=== PATIENT | male | born 1985 | race Caucasian/White ===

== ENCOUNTER → 2025-03-11 16:14 | Outpatient (REF) | payer OTHER, SELFPAY | LOC: RAD 16:14 | PROVIDERS: ATTENDING PHYSICIAN Physician Assistant | DX: R10.32 Left lower quadrant pain (principal) | CPT/HCPCS: 74177; Q9967 ==

== ENCOUNTER 2025-03-11 17:15 | Emergency (ER) | payer OTHER, SELFPAY ==
[2025-03-11 17:23] VITALS: BMI 23.5
--- NOTE | 2025-03-11 17:24 | ED.GENMED ---
History of Present Illness
General
Chief Complaint: Allergic Reaction
Source: patient
Exam Limitations: none
Time Seen by Provider: 03/11/25 17:23
Nursing documentation reviewed up to this point in time: agreed with
History of Present Illness
History of Present Illness:
39-year-old male with no reported chronic medical issues presents to the ER from outpatient CT scanner due to allergic reaction. Patient was receiving outpatient CT and received IV contrast. He had removed his IV and he was getting ready to go
home when he started to notice puffiness of his right eye and pruritic rash and returned back to outpatient radiology area at which point a rapid response was called and he was brought to the emergency room. Patient reports puffiness in the eye and
mild pruritus with rash. He denies feeling short of breath. He denies feeling any swelling in his tongue or throat. He denies any abdominal pain or nausea. He denies having had similar reactions in the past, denies any known allergies.
Past History
Past History
ED Past Medical History: Other ( Varicose veins in his legs, bipolar illness)
ED Past Surgical History: Other (varicose veins)
Social History
Tobacco: Vaping (He vapes nicotine)
Alcohol: None
Drug: None
Personal:
Family History
Family History: Other (Gran father with CHF)
Review of Systems
Review of Systems
All Other Systems: ROS reviewed and negative except as documented in HPI and ROS
Constitutional: Denies fever
Respiratory: Denies cough or trouble breathing
Cardiac: Denies chest pain
ABD/GI: Denies abdominal pain, nausea or vomiting
: Denies flank pain
Musculoskeletal: Denies neck pain or back pain
Skin: Reports itching and rash
Neurological: Denies headache
Phy Exam
Physical Exam
Physical Exam:
General: Awake, alert, no acute distress
Head: Normocephalic, atraumatic
Eyes: Conjunctiva normal, EOMI; mild right periorbital edema
Throat: Airway intact, handling secretions, no tongue or lip swelling noted
Neck: Trachea midline, supple without meningismus
Lungs: Clear to auscultation bilaterally, no wheezing, rales, rhonchi
Heart: Regular rate and rhythm, no murmurs, gallops, or rubs
Abd: Soft, non distended, nontender
Neuro: Grossly intact
Skin: Patient has scattered hives and erythema on the face, back, chest and neck as well as on extremities
Extremities: Warm and well-perfused
Scores
Heart Failure Risk
Heart Failure Risk Score: Not Applicable
Heart Score for Chest Pain Patients
STEMI patient?: Not applicable
Withdrawal Assessment of Alcohol
Withdrawal Assessment Completed?: Not applicable
Course
Orders/Labs/Results
Orders:
Orders
03/11/25 17:18
EPINEPHrine PF [Adrenalin] 1 mg .ROUTE .STK-MED ONE
Famotidine [Pepcid] 20 mg .ROUTE .STK-MED ONE
Prednisone [Deltasone] 50 mg .ROUTE .STK-MED ONE
03/11/25 17:19
Diphenhydramine [Benadryl] 50 mg .ROUTE .STK-MED ONE
03/11/25 17:24
Diphenhydramine [Benadryl] 50 mg PO NOW STA
EPINEPHrine PF [Adrenalin] 0.3 mg IM NOW STA
Famotidine [Pepcid] 20 mg PO NOW STA
Prednisone [Deltasone] 50 mg PO NOW STA
Vital Signs
Initial and Last Documented VS:
Initial Vital Signs
BP Pulse Ox
154/114 97
03/11/25 17:26 03/11/25 17:26
Last Documented Vital Signs
Temp Pulse Resp BP Pulse Ox
37.1 C 85 19 142/95 96
03/11/25 17:43 03/11/25 20:00 03/11/25 19:49 03/11/25 20:00 03/11/25 20:00
MDM/Problems Addressed
Differential Diagnosis Includes:
Allergic reaction
MDM/Problems Addressed:
Patient presents with allergic reaction after receiving IV dye for outpatient CT scan. He has pruritus and hives with some periorbital edema but no swelling of the lips or tongue, no breathing troubles, no GI symptoms. Will plan to treat with
epinephrine, steroids, antihistamines. Will monitor very closely reassess after the above.
Reassessment after medication patient reports subjective improvement. Objectively the edema in the right periorbital region has completely resolved. Hives/erythema on the neck/back/chest improving. Continue to monitor here.
Patient completely asymptomatic on reassessment. Continue to monitor--will plan for 4-hour total observation from time of injection which was at 4:45 PM.
Patient remains completely asymptomatic. He did have some hypertension after epinephrine but this is normalized, rest of vitals have been stable. He is requesting discharge�at this point he is roughly 4 hours from time of exposure has not had
symptoms since receiving meds here. Will discharge on short course of steroids with EpiPen in place. Spoke to him in detail about return precautions and follow-up plan and explained that he can never have IV dye without pain premedicated. He
indicated understanding. All questions answered.
*Pulse Oximetry
Patient hypoxic: no (99%)
*Critical Care Note
Total Time (30-74mins, 75-104mins- exclusive of procedures): Not Applicable
Data Reviewed
Source: patient
ED Attending Note
-
Portions of this chart may have been created with voice recognition software.� Occasional wrong word or��sound alike� substitutions may have occurred due to the inherent limitations of voice recognition software.
Discharge Plan
Departure
Patient Disposition: Home (Routine Discharge)
Date of Disposition: 03/11/25
Time of Disposition: 20:23
Patient with high blood pressure during this ER visit?: Yes
Discharge Problem:
Allergic reaction
Instructions: Anaphylaxis - Discharge instructions
Prescriptions:
New
epinephrine [EpiPen 2-Bryn] 0.3 mg/0.3 mL auto-injector
0.3 mg IM ONCE Qty: 2 0RF
prednisone 50 mg tablet
50 mg PO DAILY Qty: 5 0RF
No Action
lamotrigine 100 MG tablet
50 mg PO DAILY
Patient Comments:
pt weaning off
buspirone 5 mg Tablet
5 mg PO DAILY
propranolol 10 mg Tablet
5 mg PO PRN PRN (Reason: anxiety)
bupropion HCl [Wellbutrin XL] 150 mg Tablet Extended Release 24 Hr
150 mg PO DAILY
amoxicillin-pot clavulanate 875-125 mg tablet
1 tab PO BID Qty: 20 0RF
ondansetron 4 mg tablet,disintegrating
4 mg PO TIDPRN PRN (Reason: nausea/vomiting) Qty: 10 0RF
oxycodone 5 mg tablet
5 mg PO Q8H PRN (Reason: pain) Qty: 10 0RF
prednisone 20 mg tablet
20 mg PO BID 3 Days Qty: 6 0RF
Referrals:
Olesya Walker PA [Family Provider, Family Practice] - Call in 1-3 days for appt
Activity Restrictions/Additional Instructions:
You had an allergic reaction to IV dye today. You must not receive IV dye again in the future without being premedicated. You were prescribed a few days of steroids which you should take as prescribed.
You were prescribed an EpiPen for use as needed in the future if you should have any similar allergic reactions, specifically if you develop any facial swelling, breathing issues or any other signs of severe allergic reaction. You should still come
to the emergency room if you require an EpiPen.
You should follow-up with your primary doctor within the next week or 2 after your visit to the ER today.
Thank you for visiting the Emergency Department at [facility].
1. Please schedule a follow up appointment as directed. Call first thing tomorrow morning to make an appointment.
2. If indicated, please take your medications as instructed and indicated on discharge paperwork.
3. If any of your symptoms do not improve, or persist, or become more severe within 6-12 hours, please return to the emergency department for further care.
4. Please return to the emergency department if you develop a headache, neck pain/stiffness, fever greater than 100.4F, chest pain, shortness of breath, persistent nausea, vomiting, slurred speech, difficulty walking, numbness/tingling, weakness,
signs of infection or any other symptoms that are worrisome to you.
Please call [phone] if you have any questions.
Interventions
Interventions:
*Risk Screen - Suicide Last Done: 03/11/25 17:23
*General Assessment Last Done: 03/11/25 17:23
*Neglect/Abuse Screening Last Done: 03/11/25 17:23
*ED- Fall Risk Assessment Last Done: 03/11/25 17:23
*ED COVID-19 Vaccine History Last Done: 03/11/25 17:23
ED- Cardiac Assessment Last Done: 03/11/25 17:23
ED- Pulmonary Assessment Last Done: 03/11/25 17:23
ED-Skin Assessment Last Done: 03/11/25 17:23
Discharge Date and Time
Print Language: ITALIAN
[2025-03-11 17:26] VITALS: BP 154/114
[2025-03-11] MEDS: ADRENALIN 0.3 MG IM (17:29)
[2025-03-11] MEDS: BENADRYL 50 MG PO (17:30)
[2025-03-11] MEDS: DELTASONE 50 MG PO (17:30)
[2025-03-11] MEDS: PEPCID 20 MG PO (17:30)
[2025-03-11 18:00] VITALS: BP 136/101
[2025-03-11 19:00] VITALS: BP 128/86
[2025-03-11 20:00] VITALS: BP 142/95
== END 2025-03-11 20:30 | disposition home or self-care (01) ==
LOC: EMR 17:15
PROVIDERS: EMERGENCY PHYSICIAN Emergency Medicine; FAMILY PHYSICIAN Physician Assistant
DX: L50.0 Allergic urticaria (principal); T50.8X5A Adverse effect of diagnostic agents, initial encounter; X58.XXXA Exposure to other specified factors, initial encounter; F17.290 Nicotine dependence, other tobacco product, uncomplicated
CPT/HCPCS: 96372; 99284